=== PATIENT | male | born 1985 | race Caucasian/White ===

== ENCOUNTER 2018-01-21 13:08 | Emergency (ER) | payer MEDICAID ==
[~2018-01-21] VITALS: Ht 175.3 cm; Wt 82.0 kg
[2018-01-21] MEDS ORDERED: LORazepam 2 MG/ML, 1ML ONE (13:24)
[2018-01-21] MEDS ORDERED: PLEASE ENTER HEIGHT AND WEIGHT MC SCH (13:30)
[2018-01-21] MEDS ORDERED: SODIUM CHLORIDE 0.9% 1,000ML IVBOLUS ONE (13:30)
[2018-01-21] MEDS ORDERED: PLEASE ENTER ALLERGIES MC SCH (13:30)
[2018-01-21] MEDS ORDERED: LORazepam 2 MG/ML, 1ML IVPush ONE (13:30)
[2018-01-21 13:35] LABS: BASOPHILS # (AUTO) 0.08 x10^3/uL (0-0.1); BASOPHILS % (AUTO) 1 % (0-1); EOSINOPHILS # (AUTO) 0.07 x10^3/uL (0-0.4); EOSINOPHILS % (AUTO) 1 % (1-7); LYMPHOCYTES # (AUTO) 0.73 x10^3/uL (1-3.4); LYMPHOCYTES % (AUTO) 8 % (22-44); MD NO; MEAN CORPUSCULAR HEMOGLOBIN 32.7 pg (27.5-34.5); MEAN CORPUSCULAR HGB CONC 34.4 g/dL (33.2-36.2); MEAN CORPUSCULAR VOLUME 95.2 fL (81-97); MEAN PLATELET VOLUME 6.7 fL (7.4-10.4); MONOCYTES # (AUTO) 0.64 x10^3/uL (0.2-0.8); MONOCYTES % (AUTO) 7 % (2-9); NEUTROPHILS # (AUTO) 7.41 x10^3/uL (1.8-6.8); NEUTROPHILS % (AUTO) 83 % (42-75); PLATELET COUNT 210 x10^3/uL (130-400); RED BLOOD COUNT 4.72 x10^6/uL (4.38-5.82); RED CELL DISTRIBUTION WIDTH 13.3 % (9.4-14.8)
[2018-01-21 13:47] LABS: ALANINE AMINOTRANSFERASE 82 U/L (12-78); ALBUMIN 3.9 g/dL (3.4-5.0); ANION GAP 9 mmol/L (5-15); CALCIUM 8.6 mg/dL (8.5-10.1); CHLORIDE 101 mmol/L (98-107); CREATININE 1.01 mg/dL (0.7-1.3)
[2018-01-21 13:50] LABS: ALKALINE PHOSPHATASE 69 U/L (45-117); BILIRUBIN,TOTAL 0.8 mg/dL (0.2-1.0); TOTAL PROTEIN 7.6 g/dL (6.4-8.2)
[2018-01-21] MEDS ORDERED: THIAMINE 100MG TABLET PO ONE (14:00)
[2018-01-21] MEDS ORDERED: CHLORDIAZEPOXIDE 25 MG CAPSULE PO ONE (14:00)
[2018-01-21] MEDS ORDERED: LIDOCAINE 1%, 10ML INFIL ONE (14:00)
[2018-01-21] MEDS ORDERED: THIAMINE 100MG TABLET ONE (14:41)
[2018-01-21] MEDS ORDERED: CHLORDIAZEPOXIDE 25 MG CAPSULE ONE (14:42)
[2018-01-21] MEDS ORDERED: LIDOCAINE-MPF 1%, 5ML ONE (14:42)
[2018-01-21 15:01] LABS: AMPHETAMINE SCREEN, URINE Negative (Negative); BARBITURATE SCREEN, URINE Negative (Negative); BENZODIAZEPINE SCREEN, URINE Negative (Negative); CANNABINOID SCREEN, URINE Negative (Negative); COCAINE SCREEN, URINE Negative (Negative); METHADONE SCREEN, URINE Negative (Negative); OPIATE SCREEN, URINE Negative (Negative)
[2018-01-21 15:57] VITALS: BP 134/87
== END 2018-01-21 16:48 | disposition home or self-care (01) ==
LOC: ED 14:34
DX: S01.511A Laceration without foreign body of lip, initial encounter (principal); R56.9 Unspecified convulsions; F10.239 Alcohol dependence with withdrawal, unspecified; S00.81XA Abrasion of other part of head, initial encounter; X58.XXXA Exposure to other specified factors, initial encounter; Y93.89 Activity, other specified; Y92.89 Other specified places as the place of occurrence of the external cause; Y99.8 Other external cause status
CPT/HCPCS: 36415; 40650; 70450; 80053; 80307; 83735; 85025; 93005; 96361; 96374; 99285; J2060; J3490; J7030

== ENCOUNTER 2019-10-14 01:46 | Emergency (ER) | payer SELFPAY ==
[~2019-10-14] VITALS: Ht 180.3 cm; Wt 81.6 kg
--- NOTE | 2019-10-14 02:11 | NUR ---
PT BIB [facility] FOR APPARENT ETOH. PT REPORTS TO STERNAL RUB, MUMBLES, WILL NOT ANSWER QUESTIONS. PT PLACED ON 4L OXYGEN TO MAINTAIN SPO2 >90%. UNABLE TO COMPLETE MED REC AT THIS TIME.
--- NOTE | 2019-10-14 02:35 | NUR ---
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 PT DENIES C/O PAIN. PROVIDED W/ WARM BLANKET, REPOSITIONED ON GURNEY.
[2019-10-14 03:23] VITALS: BP 99/53
--- NOTE | 2019-10-14 04:14 | NUR ---
PT RESTING QUIETLY AT THIS TIME, RESPIRATIONS EVEN AND UNLABORED.
--- NOTE | 2019-10-14 04:50 | NUR ---
PT FOUND WANDERING IN HALLWAY. ERP AWARE, OKAY TO DC PT. PT A&O X 4, STATED AWARE "DRANK A LOT FOR THE HOLIDAY." PT ABLE TO AMBULATE W/O DIFFICULTY, DENIES C/O PAIN. REVIEWED DISCHARGE INSTRUCTIONS W/ PT, VERBALIZED UNDERSTANDING TO INFORMATION PROVIDED INCLUDING FOLLOW UP CARE, DENIED QUESTIONS/CONCERNS. PT AMBULATED TO DISCHARGE DESK.
== END 2019-10-14 04:54 | disposition home or self-care (01) ==
LOC: ED 04:48
DX: F10.220 Alcohol dependence with intoxication, uncomplicated (principal); R11.2 Nausea with vomiting, unspecified; Y90.9 Presence of alcohol in blood, level not specified
CPT/HCPCS: 99283

== ENCOUNTER 2021-04-20 19:32 | Emergency (ER) | payer SELFPAY ==
[~2021-04-20] VITALS: Ht 180.3 cm; Wt 79.4 kg
--- NOTE | 2021-04-20 19:46 | NUR ---
FSBS DONE IN TRIAGE, AND IS 57 MG/DL
--- NOTE | 2021-04-20 19:58 | NUR ---
pt came into ed this evening due to having "double vision and feeling really tired", started abou t1.5 hrs prior. Pt fsbs was found to be at 57, pt provided two orange juices to drink at this time. 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 denies drug use. pt resting on gurney, monitoring in place, provided warm blankets for comfort, wctm.
--- NOTE | 2021-04-20 20:50 | NUR ---
Patient is resting comfortably in bed. Bed in lowest, rails engaged, call light on lap. NO CHANGE IN CONDITION, WCTM.
[2021-04-20 21:19] LABS: BASOPHILS % (AUTO) 1 % (0-1); EOSINOPHILS % (AUTO) 4 % (1-7); LYMPHOCYTES % (AUTO) 20 % (22-44); MEAN CORPUSCULAR HEMOGLOBIN 32.3 pg (27.5-34.5); MEAN CORPUSCULAR HGB CONC 34.4 g/dL (33.2-36.2); MEAN PLATELET VOLUME 6.3 fL (7.4-10.4); MONOCYTES % (AUTO) 16 % (2-9); NEUTROPHILS % (AUTO) 59 % (42-75); PLATELET COUNT 217 x10^3/uL (130-400); RED BLOOD COUNT 4.83 x10^6/uL (4.38-5.82)
[2021-04-20 21:21] LABS: ALANINE AMINOTRANSFERASE 28 U/L (12-78); ALBUMIN 3.6 g/dL (3.4-5.0); ANION GAP 4 mmol/L (5-15); CALCIUM 8.5 mg/dL (8.5-10.1); CHLORIDE 109 mmol/L (98-107)
[2021-04-20 21:27] LABS: ALKALINE PHOSPHATASE 56 U/L (45-117); BILIRUBIN,TOTAL 0.4 mg/dL (0.2-1.0); CREATININE 0.63 mg/dL (0.7-1.3); TOTAL PROTEIN 7.5 g/dL (6.4-8.2)
--- NOTE | 2021-04-20 21:33 | NUR ---
PT WANTING TO LEAVE [facility] RN SPOKE WITH PATIENT RECOMMENDING WAITING FOR RESULTS. PT NAD, STATES "I FEEL BETTER AND NO LONGER HAVE DOUBLE VISION." PT AGREED TO STAY AT THIS TIME. WCTM. CHART UP FOR RECHECK
[2021-04-20 22:04] VITALS: BP 115/77
--- NOTE | 2021-04-20 22:05 | NUR ---
Patient given discharge instructions and they have confirmed that they understand the instructions. Patient ambulatory with steady gait. NAD, all questions answered appropriately, denies additional needs at this time. No personal belongings left in room after discharge.
== END 2021-04-20 22:06 | disposition home or self-care (01) ==
LOC: ED 22:00
DX: F10.220 Alcohol dependence with intoxication, uncomplicated (principal); H53.2 Diplopia; R00.0 Tachycardia, unspecified; F17.210 Nicotine dependence, cigarettes, uncomplicated; Y90.0 Blood alcohol level of less than 20 mg/100 ml
CPT/HCPCS: 36415; 80053; 80320; 82962; 85025; 93005; 99285; 99406; G0480